=== PATIENT | male | born 1985 | race Caucasian/White ===

== ENCOUNTER 2019-07-21 19:48 | Emergency (ER) | payer SELFPAY ==
[~2019-07-21] VITALS: Ht 170.2 cm; Wt 63.5 kg
--- NOTE | 2019-07-21 20:00 | NUR ---
ED Nurse Note: PATIENT AMBULATED TO ED C/O FLULIKE S/S X1DAY. PT REPORTS COUGH, HAIDER AND FEVER. TEMP AT TRIAGE WAS 99.8. 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 VSS, NAD, WILL CONTINUE TO MONITOR PT
[2019-07-21] MEDS ORDERED: ONDANSETRON ODT4 MG BC (20:23)
[2019-07-21] MEDS ORDERED: IBUPROFEN600 MG ORAL (20:23)
[2019-07-21] MEDS ORDERED: TAMIFLU75 MG ORAL (20:23)
[2019-07-21 20:30] VITALS: BP 111/62
[2019-07-21] MEDS ORDERED: Oseltamivir 75mg cap ORAL ONE (20:30)
--- NOTE | 2019-07-21 21:30 | NUR ---
ER DISCHARGE NOTE: Patient is cleared to be discharged per ERMD, pt is aox4, on room air, with stable vital signs. pt was given dc and prescription instructions, pt was able to verbalize understanding, pt id band removed without complications. pt is able to ambulate with steady gait. pt took all belongings.
== END 2019-07-21 20:30 | disposition home or self-care (01) ==
LOC: EMR 20:15
DX: R50.9 Fever, unspecified (principal); R51 Headache; R05 Cough
CPT/HCPCS: 99282